=== PATIENT | female | born 1975 | race Caucasian/White ===

== ENCOUNTER 2017-10-13 09:10 | Outpatient (CLI) | payer OTHER | END 2017-10-13 09:11 | disposition home or self-care (01) | LOC: BICMAMMO 09:10 | PROVIDERS: ATTEND Obstetrics & Gynecology | DX: Z12.31 Encounter for screening mammogram for malignant neoplasm of breast (principal); N64.89 Other specified disorders of breast | CPT/HCPCS: 77063; 77067 ==

== ENCOUNTER 2017-10-14 09:58 | Outpatient (CLI) | payer OTHER | END 2017-10-14 09:59 | disposition home or self-care (01) | LOC: BICMAMMO 09:58 | PROVIDERS: ATTEND Obstetrics & Gynecology | DX: R92.8 Other abnormal and inconclusive findings on diagnostic imaging of breast (principal) | CPT/HCPCS: G0279 ==

== ENCOUNTER 2018-03-11 10:38 | Outpatient (CLI) | payer OTHER ==
--- NOTE | 2018-03-11 11:29 | ULT ---
ULTRASOUND WITH DOPPLER DUPLEX VENOUS LOWER EXTREMITY LEFT: CPT: 85519 ICD-10-PCS: B54D INDICATION: Pain and edema. TECHNIQUE: Color flow Doppler, spectral waveform analysis of pulsed Doppler, and vaz-scale imaging with aneudy samantha and augmentation, were used to evaluate the left common femoral, femoral, popliteal, posterior t ibial, and superficial femoral, veins; and the proximal portions of the profunda femoral and greater saphenous, veins. FINDINGS: There is appropriate compressibility and flow within the imaged deep venous system left lower extremi ty. IMPRESSION: No deep venous thrombosis. POS: GRACE
== END 2018-03-11 10:39 | disposition home or self-care (01) ==
LOC: SCSULT 10:38
PROVIDERS: ATTEND Family Medicine
DX: S80.12XA Contusion of left lower leg, initial encounter (principal); I83.93 Asymptomatic varicose veins of bilateral lower extremities; I80.9 Phlebitis and thrombophlebitis of unspecified site; R60.0 Localized edema

== ENCOUNTER 2018-05-05 12:59 | Outpatient (CLI) | payer OTHER | END 2018-05-05 13:00 | disposition home or self-care (01) | LOC: BICMAMMO 12:59 | PROVIDERS: ATTEND Obstetrics & Gynecology | DX: R92.8 Other abnormal and inconclusive findings on diagnostic imaging of breast (principal); N64.89 Other specified disorders of breast | CPT/HCPCS: G0279 ==

== ENCOUNTER 2018-10-30 09:19 | Outpatient (CLI) | payer OTHER ==
--- NOTE | 2018-10-30 11:38 | ULT ---
LIMITED LEFT BREAST ULTRASOUND: HISTORY: Left breast mass. COMPARISON: 05/05/2018 and 10/14/2017. FINDINGS: Sonographic evaluation of the 10 o'clock position of the left breast was performed. Mixed-echogenici ty mass in this location is redemonstrated measuring approximately 1 cm. IMPRESSION: BIRADS category 3 - probably benign findings. Six-month followup ultrasound is recommended. POS: OFF
--- NOTE | 2018-11-09 13:18 | MMO ---
MAMMO Bilat Diag DDI+IRAJ. CLINICAL HISTORY: Patient is 43 years old and is seen for diagnostic exam. The patient has no family history of breast cancer. The patient has no personal history of cancer. VIEWS: The views performed were: bilateral craniocaudal with tomosynthesis; bilateral mediolateral oblique with tomosynthesis; and bilateral mediolateral. FILMS COMPARED: The present examination has been compared to prior imaging studies performed at [facility] on 10/13/2017, 10/14/2017, 05/05/2018 and 10/30/2018. MAMMOGRAM FINDINGS: The breasts are heterogeneously dense, which could obscure a lesion on mammography. There is a stable focal asymmetry seen in the inner region of the left breast. IMPRESSION: STABLE FOCAL ASYMMETRY IN THE LEFT BREAST IS PROBABLY BENIGN. FOLLOW-UP IN 6 MONTHS IS RECOMMENDED. THE RESULTS OF THIS EXAM WERE SENT TO THE PATIENT. ACR BI-RADS Category 3 - Probably benign finding - short interval follow-up suggested. [facility] will notify the patient of the need for additional imaging services. MAMMOGRAPHY NOTE: 1. A negative mammogram report should not delay a biopsy if a dominant of clinically suspicious mass is present. 2. Approximately 10% to 15% of breast cancers are not detected by mammography. 3. Adenosis and dense breasts may obscure an underlying neoplasm.
== END 2018-10-30 09:20 | disposition home or self-care (01) ==
LOC: BICMAMMO 09:19
PROVIDERS: ATTEND Obstetrics & Gynecology
DX: R92.2 Inconclusive mammogram (principal); N64.89 Other specified disorders of breast
CPT/HCPCS: 77066; G0279

== ENCOUNTER 2019-04-30 10:36 | Outpatient (CLI) | payer OTHER ==
--- NOTE | 2019-04-30 11:18 | MMO ---
Left Breast MAMMO Unilat Diag DDI LT+IRAJ. CLINICAL HISTORY: Patient is 43 years old and is seen for diagnostic exam. The patient has no family history of breast cancer. The patient has no personal history of cancer. VIEWS: The views performed were: left craniocaudal with tomosynthesis; left mediolateral oblique with tomosynthesis; and left mediolateral with tomosynthesis. FILMS COMPARED: The present examination has been compared to prior imaging studies performed at [facility] on 05/05/2018, 10/30/2018 and 04/30/2019. This study has been interpreted with the assistance of computer-aided detection. MAMMOGRAM FINDINGS: The breast is heterogeneously dense, which could obscure a lesion on mammography. There is a stable oval mass seen in the left breast. IMPRESSION: STABLE MASS IN THE LEFT BREAST IS PROBABLY BENIGN. FOLLOW-UP IN 6 MONTHS IS RECOMMENDED. THE RESULTS OF THIS EXAM WERE SENT TO THE PATIENT. ACR BI-RADS Category 3 - Probably benign finding - short interval follow-up suggested. [facility] will notify the patient of the need for additional imaging services. MAMMOGRAPHY NOTE: 1. A negative mammogram report should not delay a biopsy if a dominant of clinically suspicious mass is present. 2. Approximately 10% to 15% of breast cancers are not detected by mammography. 3. Adenosis and dense breasts may obscure an underlying neoplasm. Reported by: TIN BINGHAM MD Electonically Signed: [id number]
--- NOTE | 2019-04-30 12:15 | ULT ---
FOCUSED ULTRASOUND OF LEFT BREAST: Date: 04/30/19 COMPARISON: 10/30/18, 05/05/18, 10/14/17. HISTORY: Reevaluate hypoechoic lesion of 10 o'clock position of left breast. FINDINGS: Focused ultrasound at the 10 o'clock position of the left breast, approximately 5 cm from the nipple, again demonstrates a nonspecific heterogeneously hypoechoic lesion measuring up to approximately 9.0 x 7.0 x 1.4 cm. This has a stable appearance on mammography and ultrasound, and is felt to likely re present a focal cluster of cysts. No shadowing or new mass lesion identified. IMPRESSION: BI-RADS Category 3 - Probably benign findings. Recommend a final 6 month follow-up diagnostic mammogr am and left breast ultrasound. POS: OFF
== END 2019-04-30 10:37 | disposition home or self-care (01) ==
LOC: BICULT 10:36
PROVIDERS: ATTEND Obstetrics & Gynecology
DX: R92.8 Other abnormal and inconclusive findings on diagnostic imaging of breast (principal); N63.20 Unspecified lump in the left breast, unspecified quadrant
CPT/HCPCS: G0279

== ENCOUNTER 2019-11-01 09:18 | Outpatient (CLI) | payer OTHER ==
--- NOTE | 2019-11-01 10:10 | MMO ---
Bilateral MAMMO Bilat Diag DDI+IRAJ. CLINICAL HISTORY: Patient is 44 years old and is seen for diagnostic exam. The patient has no family history of breast cancer. The patient has no personal history of cancer. VIEWS: The views performed were: bilateral craniocaudal with tomosynthesis; bilateral mediolateral oblique with tomosynthesis; and bilateral mediolateral with tomosynthesis. FILMS COMPARED: The present examination has been compared to prior imaging studies performed at [facility] on 10/30/2018, 04/30/2019 and 11/01/2019. This study has been interpreted with the assistance of computer-aided detection. MAMMOGRAM FINDINGS: The breasts are heterogeneously dense, which could obscure a lesion on mammography. Finding 1: There is a stable asymmetry seen in the upper-inner region of the left breast. Finding 2: There are stable benign appearing calcifications seen in both breasts. There are no suspicious masses, suspicious calcifications, or new areas of architectural distortion. IMPRESSION: THERE IS NO MAMMOGRAPHIC EVIDENCE OF MALIGNANCY. A ROUTINE FOLLOW-UP MAMMOGRAM IN 1 YEAR IS RECOMMENDED. THE RESULTS OF THIS EXAM WERE SENT TO THE PATIENT. ACR BI-RADS Category 2 - Benign finding MAMMOGRAPHY NOTE: 1. A negative mammogram report should not delay a biopsy if a dominant of clinically suspicious mass is present. 2. Approximately 10% to 15% of breast cancers are not detected by mammography. 3. Adenosis and dense breasts may obscure an underlying neoplasm. Reported by: HIPOLITO MACHADO MD Electonically Signed: [id number]
--- NOTE | 2019-11-01 10:58 | ULT ---
LEFT BREAST ULTRASOUND: COMPARISON: Mammogram 11/01/2019 and ultrasound 04/30/2019, 10/30/2018, 05/05/2018. HISTORY: Focal asymmetry in the 10 o'clock position of the left breast. TECHNIQUE: Multiplanar, vaz scale, and color Doppler images were obtained in a left breast ultrasound. FINDINGS: There is a stable isoechoic to slightly hypoechoic region at the 10 o'clock position of the left [address] st approximately 5 cm from the nipple. This measures 1.2 cm in greatest dimension and may represent a cluster of cysts or focal asymmetric breast tissue. No suspicious shadowing is seen. IMPRESSION: BIRADS category 2 - benign findings. Annual screening mammography is recommended.
== END 2019-11-01 09:19 | disposition home or self-care (01) ==
LOC: BICMAMMO 09:18
PROVIDERS: ATTEND Obstetrics & Gynecology
DX: R92.8 Other abnormal and inconclusive findings on diagnostic imaging of breast (principal)
CPT/HCPCS: 77066; G0279

== ENCOUNTER 2020-08-16 10:55 | Outpatient (CLI) | payer OTHER ==
--- NOTE | 2020-08-16 15:06 | CT ---
CT HEAD WITHOUT CONTRAST: 08/16/20 INDICATIONS: Headache. Ventricles have normal size and position. No evidence of intracranial mass, infarct, hemorrhage, or e chas. Paranasal sinuses and mastoids are clear. IMPRESSION: No acute abnormality. POS: AGW
== END 2020-08-16 10:56 | disposition home or self-care (01) ==
LOC: BICCT 10:55
PROVIDERS: ATTEND Family Medicine
DX: R51.9 Headache, unspecified (principal)
CPT/HCPCS: 70450

== ENCOUNTER 2020-11-02 10:28 | Outpatient (CLI) | payer OTHER | END 2020-11-02 10:29 | disposition home or self-care (01) | LOC: BICMAMMO 10:28 | PROVIDERS: ATTEND Obstetrics & Gynecology | DX: Z12.31 Encounter for screening mammogram for malignant neoplasm of breast (principal) | CPT/HCPCS: 77063; 77067 ==

== ENCOUNTER 2022-12-12 15:49 | Emergency (ER) | payer OTHER | END 2022-12-12 16:02 | disposition home or self-care (01) | LOC: ERS 15:49 | DX: S00.01XA Abrasion of scalp, initial encounter (principal); W22.8XXA Striking against or struck by other objects, initial encounter | CPT/HCPCS: 99283 ==

== ENCOUNTER 2022-12-20 09:01 | Outpatient (CLI) | payer OTHER | END 2022-12-20 09:02 | disposition home or self-care (01) | LOC: BICMAMMO 09:01 | PROVIDERS: ATTEND Family Medicine | DX: Z12.31 Encounter for screening mammogram for malignant neoplasm of breast (principal) | CPT/HCPCS: 77063; 77067 ==

== ENCOUNTER 2023-12-26 08:27 | Outpatient (CLI) | payer OTHER | END 2023-12-26 08:28 | disposition home or self-care (01) | LOC: BICMAMMO 08:27 | PROVIDERS: ATTEND Obstetrics & Gynecology | DX: Z12.31 Encounter for screening mammogram for malignant neoplasm of breast (principal) | CPT/HCPCS: 77063; 77067 ==

== ENCOUNTER 2024-06-14 13:34 | Outpatient (CLI) | payer OTHER | END 2024-06-14 13:35 | disposition home or self-care (01) | LOC: ULT 13:34 | PROVIDERS: ATTEND Family Medicine | DX: I83.891 Varicose veins of right lower extremity with other complications (principal); R10.2 Pelvic and perineal pain | CPT/HCPCS: 76856 ==